=== PATIENT | female | born 1955 | race Caucasian/White ===

== ENCOUNTER → 2020-01-01 14:37 | Outpatient (CLI) | payer OTHER, SELFPAY ==
--- NOTE | 2020-01-01 14:55 | EKG12_ITS ---
Test Reason : PRE-OP Blood Pressure : / mmHG Vent. Rate : 064 BPM Atrial Rate : 064 BPM P-R Int : 116 ms QRS Dur : 100 ms QT Int : 434 ms P-R-T Axes : -17 034 020 degrees QTc Int : 447 ms Normal sinus rhythm with sinus arrhythmia Normal ECG Confirmed by MICHAEL HORNE, JAMIE ([id number]), electronic news gathering editor CARYL YANEZ ([id number]) on 01/02/2020 1:35:58 PM Referred By: Byron Ribeiro Confirmed By:JAMIE RODRIGUEZ MD
[2020-01-01 15:40] LABS: Hematocrit 37.4 % (37-47); Hemoglobin 12.2 g/dL (12.0-15.0); Mean Corp Hgb Conc 32.6 g/dL (32-36); Mean Corpuscular Hgb 29.1 pg (27.0-32.0); Mean Corpuscular Volume 89.3 fL (81-99); Mean Platelet Vol. 10.7 fl (6.2-12.0); Platelet Count 253 K/mm3 (150-450); RBC Distribution Width CV 14.6 % (11.6-14.6); RBC Distribution Width SD 48.1 fl (35.1-43.9); Red Blood Count 4.19 M/mm3 (4.2-5.4); White Blood Count 4.9 K/mm3 (4.4-11.0)
== END ==
PROVIDERS: PCP Family Medicine; Referring Provider Urology; Visit Provider Urology
DX: Z01.818 Encounter for other preprocedural examination (principal); Z20.828 Contact with and (suspected) exposure to other viral communicable diseases; R82.998 Other abnormal findings in urine
CPT/HCPCS: 36415; 85027; 87086; 87088; 87635; 93005; 94799; U0003